=== PATIENT | male | born 1985 | race Caucasian/White ===

== ENCOUNTER → 2017-10-21 | Outpatient (CLI) | payer OTHER ==
--- NOTE | 2017-10-21 12:23 | DIAGNOSTIC IMAGING REPORT ---
RIGHT KNEE 2 VIEWS CLINICAL HISTORY: Right knee pain. FINDINGS: AP and lateral views of the right knee are obtained. No prior studies are available for comparison at the time of dictation. The skeletal structures are well mineralized. No fracture is seen. The joint spaces of the knee are maintained. There is no joint effusion. Tiny marginal osteophytes are observed. The overlying soft tissues are within normal limits. IMPRESSION: No acute bony abnormality is identified in the right knee. Electronically signed by: Antwan Marie M.D. 10/21/2017 12:22 PM Dictated Date/Time: 10/21/2017 12:21 PM
--- NOTE | 2017-10-21 12:25 | DIAGNOSTIC IMAGING REPORT ---
L KNEE 1 OR 2 VIEWS ROUTINE CLINICAL HISTORY: Bilateral knee pain. COMPARISON: None FINDINGS: Alignment of the left knee is anatomic. Joint spaces are preserved. No fracture or osseous lesion is identified. No joint effusion is evident. IMPRESSION: Unremarkable left knee radiographs. Electronically signed by: Jose Swanson M.D. 10/21/2017 12:24 PM Dictated Date/Time: 10/21/2017 12:23 PM
== END | disposition home or self-care (01) ==
LOC: C.RAD1850 11:51
PROVIDERS: ATTEND Nurse Practitioner Family
DX: M25.561 Pain in right knee (principal); M25.562 Pain in left knee